=== PATIENT | male | born 1975 | race Two or more races ===

== ENCOUNTER → 2017-09-30 | Outpatient (CLI) | payer BC ==
[~2017-09-30] MED LIST: LIPITOR20 MG PO
--- NOTE | 2017-09-30 18:14 | Diagnostic Imaging Report ---
PROCEDURE:X-RAY RIGHT FOOT, COMPLETE COMPARISON:None. INDICATIONS:5TH DIGIT PAIN RIGHT FOOT, FALL 1 WEEK AGO FINDINGS: 3 views of the right foot (AP, lateral, and oblique) No fracture or dislocation. Joint spaces are maintained. Soft tissues are unremarkable. CONCLUSION: No acute radiographic abnormality of the right foot. Dictated by: Tres Brandt M.D. on 09/30/2017 at 18:20 Electronically approved by: Tres Brandt M.D. on 09/30/2017 at 18:20
--- NOTE | 2017-09-30 18:17 | Diagnostic Imaging Report ---
PROCEDURE:HAND RIGHT 3 VIEWS AP \T\ LAT COMPARISON:None. INDICATIONS:RIGHT 1ST DIGIT JOINT PAIN FEW WEEKS FINDINGS: 3 views of the right hand (AP, lateral, and oblique) There are no fractures, dislocations, lytic or blastic lesions. The bones are well-mineralized. The soft-tissues are unremarkable. CONCLUSION: No acute radiographic abnormality of the right hand Dictated by: Tres Brandt M.D. on 09/30/2017 at 18:23 Electronically approved by: Tres Brandt M.D. on 09/30/2017 at 18:23
== END ==
LOC: RAD 12:57
PROVIDERS: ATTEND Internal Medicine
DX: M79.644 Pain in right finger(s) (principal); M79.671 Pain in right foot

== ENCOUNTER → 2018-01-16 | Day surgery (SDC) | payer BC ==
[~2018-01-16] MED LIST changes: +CELEXA20 MG PO; +HYOSCYAMINE SULFATE 0.5 MG/ML INJ ONE; +LIDOCAINE HCL 2% LOCAL INJ 5 ML SDV VIAL INJ ONE; +METOCLOPRAMIDE HCL 10 MG/2ML VIAL ONE; +MIDAZOLAM HCL 2 MG/2 ML VIAL ONE; +MULTIVITAMINS1 EAC8 PO; +PANTOPRAZOLE 40 MG 10ML VIAL ONE; +PROPOFOL IV EMULSION 10 MG/ML 20 ML VIAL ONE; +PROPOFOL IV EMULSION 10 MG/ML 50 ML VIAL ONE; +ZETIA10 MG PO
--- NOTE | 2018-01-16 13:15 | Operative Report ---
DATE OF PROCEDURE: January 16, 2018 REFERRING PHYSICIAN: Dr. Grabiel Lopez. PROCEDURES PERFORMED 1. Esophagogastroduodenoscopy with biopsies. 2. Colonoscopy with polypectomy. INDICATIONS FOR EGD: Acid reflux. INDICATIONS FOR COLONOSCOPY: Colorectal cancer screening. MEDICATION: Patient was done under MAC. Please see anesthesiologist's note. PROCEDURE: With patient in left lateral decubitus position, a flexible fiberoptic Olympus gastroscope was introduced into the esophagus under direct visualization without any difficulty. There was some patchy erythema noted in the distal esophagus. An approximately 8-mm superficial ulcer was noted at the GE junction without active bleeding or stigmata of recent hemorrhage. The scope was then advanced with ease into the stomach, traversing a small sliding hiatal hernia. Mucosa overlying the antrum and the body revealed some patchy intense erythema and moderate edema and biopsies were obtained and sent to stain for H. pylori. An approximately 4 mm ulcer was noted in the antrum along the posterior wall without active bleeding. The pylorus was of normal contour and shape, was intubated with ease, and the scope was advanced all the way to the second portion of the duodenum. The scope was then withdrawn slowly. Mucosa overlying the proximal second portion and the duodenal bulb revealed some patchy intense erythema. The scope was then withdrawn back into the stomach and retroflexed and mucosa overlying the fundus and cardia appeared to be within normal limits. The scope was then straightened out. The stomach was decompressed. The scope was subsequently withdrawn. Patient tolerated the procedure well. IMPRESSION 1. Distal esophagitis. 2. Approximately 8 mm ulcer at gastroesophageal junction without active bleeding. 3. Small sliding hiatal hernia. 4. Gastritis, biopsied, biopsies sent to stain for Helicobacter pylori. 5. Approximately 4 mm ulcer antrum posterior wall without active bleeding or stigmata of recent hemorrhage. 6. Duodenitis. PLAN: Follow up histology. Initiate Protonix 40 mg 1 p.o. q.a.m. a.c. Patient was then turned around and after adequate lubrication of the anal canal, a flexible fiberoptic Olympus colonoscope was inserted into the rectum with ease and advanced all the way to the cecum. The scope was then withdrawn slowly. Mucosa overlying the cecum, ascending colon, transverse, descending, and sigmoid appeared to be within normal limits. A minute hyperplastic-appearing polyp was noted in the distal rectum and that was removed per hot biopsy forceps. The scope was then retroflexed into the distal rectum and moderate-sized internal hemorrhoids were noted, none of which was actively bleeding. The scope was then straightened out and was subsequently withdrawn. Patient tolerated the procedure well. IMPRESSION 1. Rectal polyp, minute, hot biopsied. 2. Internal hemorrhoids, none actively bleeding. PLAN: Followup histology. Initiate high-fiber, low-fat diet. Initiate high-fiber supplement. Patient might benefit from a followup colonoscopy in 5 years. Job#: [id number] PUN cc:GRABIEL LOPEZ MD
--- OUTSIDE RECORDS SUMMARY | 2018-01-18 10:42 | XMS REPORT ---
Author [facility] Address Unknown Phone Unavailable Care Team Providers Care Finish Painter Name Role Phone Ross QUINTERO Unavailable Unavailable Problems This patient has no known problems. Allergies, Adverse Reactions, Alerts This patient has no known allergies or adverse reactions. Medications This patient has no known medications. Results Test Description Test Time Test Comments Text Results Atomic Results Result Comments HAND 3+ VIEWS RIGHT 2017-09-30 18:23:00 [place] [address] Patient Name: RORY DANIEL MR #: [id number] : 1975 Age/Sex: 41/M Req #: [id number] [facility] Physician: Ordered by: PETE QUINTERO MD Report #: [id number] Location: [facility] Room/Bed: Procedure: [id number] DX/HAND 3+ VIEWS RIGHT Exam Date: 09/30/17 Exam Time: 1700 REPORT STATUS: Signed PROCEDURE: HAND RIGHT 3 VIEWS AP T LAT COMPARISON: None. INDICATIONS: RIGHT 1ST DIGIT JOINT PAIN FEW WEEKS FINDINGS: 3 views of the right hand (AP, lateral, and oblique) There are no fractures, dislocations, lytic or blastic lesions. The bones are well-mineralized. The soft-tissues are unremarkable. CONCLUSION: No acute radiographic abnormality of the right hand Dictated by: Tres Brandt M.D. on 09/30/2017 at 18:23 Electronically approved by: Tres Brandt M.D. on 09/30/2017 at 18:23 Dictated By: TRES BRANDT MD 22 Transcribed By: DELTA on 09/30/171822 COPY TO: PETE QUINTERO MD FOOT RIGHT COMPLETE 2017-09-30 18:20:00 [place] [address] Patient Name: RORY DANIEL MR #: [id number] : 1975 Age/Sex: 41/M Req #: [id number] Adm Physician: Ordered by: PETE QUINTERO MD Report #: [id number] Location: [facility] Room/Bed: Procedure: [id number] DX/FOOT RIGHT COMPLETE Exam Date: 09/30/17 Exam Time: 1700 REPORT STATUS: Signed PROCEDURE: X-RAY RIGHT FOOT, COMPLETE COMPARISON: None. INDICATIONS: 5TH DIGIT PAIN RIGHT FOOT, FALL 1 WEEK AGO FINDINGS: 3 views of the right foot (AP, lateral, and oblique) No fracture or dislocation. Joint spaces are maintained. Soft tissues are unremarkable. CONCLUSION: No acute radiographic abnormality of the right foot. Dictated by: Tres Brandt M.D. on 09/30/2017 at 18:20 Electronically approved by: Tres Brandt M.D. on 09/30/2017 at 18:20 Dictated By: TRES BRANDT MD 19 Transcribed By: DELTA on 09/30/171819 COPY TO: PETE QUINTERO MD
== END | disposition home or self-care (01) ==
LOC: OR 06:05
PROVIDERS: ATTEND Internal Medicine Gastroenterology
DX: Z12.11 Encounter for screening for malignant neoplasm of colon (principal); K62.1 Rectal polyp; K29.70 Gastritis, unspecified, without bleeding; K25.9 Gastric ulcer, unspecified as acute or chronic, without hemorrhage or perforation; K22.10 Ulcer of esophagus without bleeding; K29.80 Duodenitis without bleeding; K21.9 Gastro-esophageal reflux disease without esophagitis; K44.9 Diaphragmatic hernia without obstruction or gangrene; K64.8 Other hemorrhoids; G47.33 Obstructive sleep apnea (adult) (pediatric)
CPT/HCPCS: 43239; 45384; J1980; J2001; J2250; J2704; J2765; 45378

== ENCOUNTER → 2018-12-28 | Outpatient (CLI) | payer BC ==
[~2018-12-28] MED LIST changes: -HYOSCYAMINE SULFATE 0.5 MG/ML INJ ONE; -LIDOCAINE HCL 2% LOCAL INJ 5 ML SDV VIAL INJ ONE; -METOCLOPRAMIDE HCL 10 MG/2ML VIAL ONE; -MIDAZOLAM HCL 2 MG/2 ML VIAL ONE; -PANTOPRAZOLE 40 MG 10ML VIAL ONE; -PROPOFOL IV EMULSION 10 MG/ML 20 ML VIAL ONE; -PROPOFOL IV EMULSION 10 MG/ML 50 ML VIAL ONE
--- NOTE | 2018-12-28 14:17 | Diagnostic Imaging Report ---
Examination: MRI BRAIN WO CONTRAST History: Seizures. Syncope. Comparison studies: None Technique: Sagittal T2; axial DWI, FLAIR, GRE or SWI, T1, Coronal FLAIR. Thin section coronals of the temporal lobes: FLAIR, T2. Intravenous contrast: None Findings: Scalp: No abnormal signal. No masses. Bone marrow: Normal in signal intensity. Brain volume: Adequate for age. No volume loss. Ventricles: Normal in size and configuration. No hydrocephalus. Extra-axial spaces: No abnormalities. Parenchyma: There are scattered punctate areas of T2/FLAIR hyperintensity in the periventricular and subcortical white matter, nonspecific. No masses, hemorrhage, acute or chronic vascular insults. Hippocampi: The bilateral hippocampi demonstrate flattening with increased T2/FLAIR signal, consistent with mesial temporal sclerosis. Normal fornices are visualized bilaterally. Vascular: No obvious vascular malformation. Normal flow voids in major arteries and veins.[ [place]oy matter: No cortical migration anomalies. Suprasellar and sellar region: No abnormalities. Craniocervical junction: No abnormalities. The foramen magnum is patent. No Chiari malformations. Vessels: Normal flow-voids in the arteries and sinuses. Additional findings:Retention cyst within the right greater than left maxillary sinuses. IMPRESSION: Bilateral mesial temporal sclerosis. Findings as described in the white matter could be related to chronic microvascular ischemic change, migraines or from prior head trauma. Signed by: Dr. Brionna Spence M.D. on 12/28/2018 2:13 PM
== END ==
LOC: MRI 12-27 13:39
PROVIDERS: ATTEND Internal Medicine
DX: R55 Syncope and collapse (principal)
CPT/HCPCS: 70551

== ENCOUNTER → 2020-07-12 | Outpatient (CLI) | payer OTHER | LOC: LAB 19:06 | DX: Z23 Encounter for immunization (principal); Z20.822 Contact with and (suspected) exposure to COVID-19 | CPT/HCPCS: U0002 ==